=== PATIENT | female | born 1965 | race American Indian/Alaskan Native ===

== ENCOUNTER 2018-10-20 23:22 | Emergency (ER) | payer MEDICAID, MEDICARE, OTHER ==
[2018-10-20 23:22] VITALS: BMI 39.5
[2018-10-20 23:39] VITALS: O2SAT 98
[2018-10-20] MEDS ORDERED: Iohexol 240 (50 ml) PO ONE (23:57)
[2018-10-20] MEDS ORDERED: Sodium Chloride 0.9% 1,000 ML IV STA (23:58)
[2018-10-21] MEDS ORDERED: Iohexol 240 (50 ml) ONE (00:41)
[2018-10-21] MEDS ORDERED: Iohexol 300 100 ML IJ ONE (03:49)
[2018-10-21] MEDS ORDERED: Sodium Chloride 0.9% 50 ML IV ONE (03:49)
--- NOTE | 2018-10-21 05:37 | ED PDOC ---
HPI: Abdomen Time Seen by Provider: 10/20/18 23:37 Chief Complaint (Nursing): Abdominal Pain Chief Complaint (Provider): abdominal pain History Per: Patient History/Exam Limitations: no limitations Onset/Duration Of Symptoms: Days (July) Current Symptoms Are (Timing): Still Present Additional Complaint(s): Nellie Ladd is a 53 year old female, with a past medical history of diabetes, HTN and seizure disorder, who presents to the emergency department complaining of having an abdominal pain since July. Patient states shes been to multiple ERs and has had numerous CT scans done that showed questionable hernia. Patient has followed up with GI doctor and was prescribed Omeprazole, she was scheduled for an EGD in October 02 but was cancelled by doctor because she needed medical clearance from her primary doctor due to her seizure disorder. Patient states she tried Carafate, Omeprazole and has been taking extra doses of Lyrica and Klonopin to sleep. Patient couldnt stand the pain anymore prompting ED visit, she wants to be admitted to have something done. She denies any other medical complaints. PMD: Clinic Past Medical History Reviewed: Historical Data, Nursing Documentation, Vital Signs Vital Signs: Last Vital Signs Temp 97.5 F L 10/20/18 23:37 Pulse 70 10/20/18 23:37 Resp 16 10/20/18 23:37 BP 151/95 H 10/20/18 23:37 Pulse Ox 98 10/20/18 23:37 - Medical History PMH: Asthma, Diabetes, HTN, Hyperthyroidism, Seizures - Surgical History Surgical History: Cholecystectomy - Family History Family History: States: Unknown Family Hx - Immunization History Hx Tetanus Toxoid Vaccination: No Hx Influenza Vaccination: No Hx Pneumococcal Vaccination: No - Home Medications Home Medications: Ambulatory Orders Medication Instructions Recorded Ibuprofen 800 mg PO TID PRN 02/12/14 Insulin Glargine,Hum.rec.anlog 23 unit SC BID 02/12/14 [Lantus] Insulin Lispro, Recombinant 14 units SC TIDPC 02/12/14 [Humalog] Metformin HCl [Metformin] 1,000 mg PO DAILY 02/12/14 Carbamazepine [Carbamazepine ER] 300 mg PO BID 08/28/18 Exenatide Microspheres [Bydureon 2 mg SC QWK 08/28/18 Pen] Famotidine [Pepcid AC] 10 mg PO QN #30 tablet 08/28/18 Lansoprazole [Prevacid] 15 mg PO DAILY #30 ecc 08/28/18 Lisinopril [Zestril] 40 mg PO DAILY 08/28/18 Metoprolol Succinate 100 mg PO DAILY 08/28/18 OXcarbazepine [Trileptal] 600 mg PO TID 08/28/18 Sucralfate [Carafate] 1 gm PO QID #28 tab 08/28/18 amLODIPine [Norvasc] 10 mg PO DAILY 08/28/18 Docusate Sodium [Dulcolax Stool 100 mg PO DAILY #12 capsule 10/21/18 Softener] Nitrofurantoin Macrocrystals 100 mg PO BID 5 Days cap 10/21/18 [Macrobid] - Allergies Allergies/Adverse Reactions: Allergies Allergy/AdvReac Type Severity Reaction Status Date / Time No Known Allergies Allergy Verified 08/28/18 15:07 Review of Systems ROS Statement: Except As Marked, All Systems Reviewed And Found Negative Gastrointestinal: Positive for: Abdominal Pain Physical Exam - Reviewed Nursing Documentation Reviewed: Yes Vital Signs Reviewed: Yes - Physical Exam Appears: Positive for: No Acute Distress Head Exam: Positive for: ATRAUMATIC, NORMAL INSPECTION, NORMOCEPHALIC Skin: Positive for: Normal Color, Warm, Dry Eye Exam: Positive for: Normal appearance, EOMI, PERRL Neck: Positive for: Normal, Painless ROM Cardiovascular/Chest: Positive for: Regular Rate, Rhythm. Negative for: Murmur Respiratory: Positive for: Normal Breath Sounds. Negative for: Respiratory Distress Gastrointestinal/Abdominal: Positive for: Soft, Tenderness (to palpation in epigastric region), Other (obese, multiple surgical scars). Negative for: Guarding, Rebound Back: Positive for: Normal Inspection. Negative for: L CVA Tenderness, R CVA Tenderness, Vertebral Tenderness Extremity: Positive for: Normal ROM (upper and lower extremities). Negative for: Deformity, Swelling Neurologic/Psych: Positive for: Alert, Oriented. Negative for: Motor/Sensory Deficits - Laboratory Results Result Diagrams: 10/21/18 00:45 - ECG O2 Sat by Pulse Oximetry: 98 (RA) Medical Decision Making Medical Decision Making: Time: 23:37 A/P: 53 y/o female with history of diabetes, HTN and seizure disorder presenting with acute on chronic exacerbation of abdominal pain. Pain may be secondary to worsening hernia vs gastritis, GERD, pancreatitis and colitis. Initial Plan: --Abdomen & Pelvis [CT] --CMP --Lipase --Drug screen, urine --CBC w/ differential --Omnipaque 240 50 ml PO --Enulose 20gm PO --NaCl 1,000 ml IV 1,000 mls/hr --Protonix Inj 40 mg IVP --Reevaluation 05:14 Abdomen/Pelvis CT FINDINGS: Bilateral basilar atelectatic pulmonary changes. Normal unenhanced liver. Surgically absent gallbladder and nondilated extrahepatic biliary system. Normal unenhanced spleen. Normal pancreas. Normal bilateral adrenal glands. Normal size of the right kidney. There is no right renal mass. There are no right renal calculi. There is no right hydronephrosis. Normal visualized right ureter. Normal size of the left kidney. There is no left renal mass. There are no left renal calculi. There is no left hydronephrosis. Normal visualized left ureter. Normal visualized stomach. Normal small intestine. Normal colon. The appendix is visualized and appears normal. There is no demonstrated peritoneal fluid. Normal abdominal aorta. Normal inferior vena cava. Normal retroperitoneum. Mild diffuse thickening of the urinary bladder. There is no pelvic mass lesion or lymphadenopathy. There is no pelvic fluid. Normal abdominal wall. Normal osseous structures. IMPRESSION: Mild thickening of the bladder. Underdistention versus mild cystitis. Mild amount of fecal residue in the large bowel. 05:40 Discussed with patients results of CT. Advised patient to follow up with GI doctor this week for colonoscopy scheduling. Patient advised on stool softeners and diet. Patient is well appearing and medically stable for discharge. Scribe Attestation: Documented by Blue [place]ura, acting as a scribe for Navid Dey MD Provider Scribe Attestation: All medical record entries made by the Scribe were at my direction and personally dictated by me. I have reviewed the chart and agree that the record accurately reflects my personal performance of the history, physical exam, medical decision making, and the department course for this patient. I have also personally directed, reviewed, and agree with the discharge instructions and di sposition. Disposition - Clinical Impression Clinical Impression: Constipation - Disposition Referrals: Jaison Sanz MD, PhD [Staff Provider] - Cuauhtemoc Logan MD [Staff Provider] - Disposition: Routine/Home Disposition Time: 05:40 Condition: STABLE Prescriptions: Docusate Sodium [Dulcolax Stool Softener] 100 mg PO DAILY #12 capsule Nitrofurantoin Macrocrystals [Macrobid] 100 mg PO BID 5 Days cap Instructions: Constipation in Adults Forms: [facility] (Persian)
[2018-10-21 06:00] LABS: BASO # 0.1 K/uL (0.0-0.2); EOS # 0.4 K/uL (0.0-0.7); EOS % 3.2 % (0.0-4.0); HEMOGLOBIN 11.7 g/dL (12.0-16.0); LYMPH # 2.4 K/uL (1.0-4.3); LYMPH % 21.6 % (20.0-40.0); MEAN CELL VOLUME 88.4 fl (81.0-99.0); MEAN CORPUSCULAR HEMOGLOBIN 29.7 pg (27.0-31.0); MEAN CORPUSCULAR HGB CONC 33.6 g/dL (33.0-37.0); MEAN PLATELET VOLUME 9.9 fl (7.2-11.7); MONO # 0.9 K/uL (0.0-0.8); MONO % 8.1 % (0.0-10.0); NEUT # 7.4 K/uL (1.8-7.0); NEUT % 66.1 % (50.0-75.0); NRBC % 0.1 % (0.0-0.0); RBC 3.94 Mil/uL (3.80-5.20); WHITE BLOOD COUNT 11.2 K/uL (4.8-10.8)
[2018-10-21 06:28] VITALS: BP 159/92; PULSE 80; RESP 17; TEMP 98.5
[2018-10-21 07:48] LABS: CALCIUM 9.5 mg/dL (8.4-10.2)
[2018-10-21 07:49] LABS: ALB/GLOB RATIO 1.1 (1.0-2.1); ALBUMIN 3.8 g/dL (3.5-5.0); BARBITURATES, UR NEGATIVE (NEGATIVE); BENZODIAZEPINES, UR NEGATIVE (NEGATIVE); OPIATES, UR NEGATIVE (NEGATIVE)
[2018-10-21 07:50] LABS: PHENCYCLIDINE, UR NEGATIVE (NEGATIVE); URINE BILIRUBIN NEGATIVE (NEGATIVE); URINE CLARITY SLIGHT-CLOUDY (Clear); URINE COLOR YELLOW (YELLOW); URINE GLUCOSE (UA) NEGATIVE (NEGATIVE)
[2018-10-21 07:51] LABS: SQUAMOUS EPITHIAL 4 /hpf (0-5); URINE BLOOD NEGATIVE (NEGATIVE); URINE LEUKOCYTE ESTERASE NEGATIVE Leu/uL (Negative); URINE PROTEIN >=300 mg/dL (NEGATIVE); URINE UROBILINOGEN 0.2 mg/dL (0.2-1.0)
--- NOTE | 2018-10-21 11:15 | CT ---
Date of service: 10/21/2018 PROCEDURE: CT Abdomen and Pelvis without intravenous contrast HISTORY: worsening abd pain COMPARISON: None. TECHNIQUE: Contiguous images were obtained from the domes of the diaphragms to the upper thighs without the administration of intravenous contrast. Oral contrast was not administered. Radiation dose: Total exam DLP = 829.88 mGy-cm. This CT exam was performed using one or more of the following dose reduction techniques: Automated exposure control, adjustment of the mA and/or kV according to patient size, and/or use of iterative reconstruction technique. FINDINGS: LOWER THORAX: Trace bibasilar linear atelectasis. LIVER: Unremarkable. No gross lesion or ductal dilatation. GALLBLADDER AND BILE DUCTS: Prior cholecystectomy. PANCREAS: Unremarkable. No gross lesion or ductal dilatation. SPLEEN: Unremarkable. ADRENALS: Unremarkable. No mass. KIDNEYS AND URETERS: Unremarkable. No hydronephrosis. No solid mass. VASCULATURE: Unremarkable. No aortic aneurysm. No aortic atherosclerotic calcification or mural plaque present. BOWEL: Unremarkable. No obstruction. No gross mural thickening. APPENDIX: Unremarkable. Normal appendix. PERITONEUM: Abdominal wall protrusion at the level of the umbilicus. No free fluid. No free air. LYMPH NODES: Unremarkable. No enlarged lymph nodes. BLADDER: Unremarkable. REPRODUCTIVE: Unremarkable. BONES: No acute fracture. OTHER FINDINGS: None. IMPRESSION: No acute abdominal pelvic pathology.
== END 2018-10-21 05:46 | disposition home or self-care (01) ==
LOC: H.ER 23:22
DX: K59.00 Constipation, unspecified (principal); E11.9 Type 2 diabetes mellitus without complications; E05.90 Thyrotoxicosis, unspecified without thyrotoxic crisis or storm; G40.909 Epilepsy, unspecified, not intractable, without status epilepticus; I10 Essential (primary) hypertension; J45.909 Unspecified asthma, uncomplicated; Z79.4 Long term (current) use of insulin
CPT/HCPCS: 74176; 80053; 81003; 81025; 83690; 85025; 96361; 96374; 99284; C9113; G0480; J7030; Q9966; Q9967